=== PATIENT | male | born 1975 | race Caucasian/White ===

== ENCOUNTER 2016-10-05 15:58 | Inpatient (IN) | payer OTHER ==
[2016-10-05 20:01] VITALS: BMI 27.3
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
[2016-10-05] MEDS ORDERED: guaiFENesin/D-METHORPHAN HB 10 ML UNIT-DOSE CUPS PO PRN (21:03)
[2016-10-05] MEDS ORDERED: LOPERAMIDE HCL 2 MG CAPSULE PO PRN (21:03)
[2016-10-05] MEDS ORDERED: ACETAMINOPHEN 325 MG TABLET (FP) PO PRN (21:03)
[2016-10-05] MEDS ORDERED: NICOTINE POLACRILEX 2 MG GUM BUC PRN (21:03)
[2016-10-05] MEDS ORDERED: diazePAM 5 MG TABLET PO ONE (21:03)
[2016-10-05] MEDS ORDERED: MAG HYDROX/AL HYDROX/SIMETH 30 ML UNIT-DOSE CUP PO PRN (21:03)
[2016-10-05] MEDS ORDERED: IBUPROFEN 400 MG TABLET (FP) PO PRN (21:03)
[2016-10-05] MEDS ORDERED: P-EPHED 60MG/TRIPROLIDI 2.5MG TABLET PO PRN (21:03)
[2016-10-05] MEDS ORDERED: MAGNESIUM HYDROX 2400MG/30ML ORAL SUSPENSION 30 ML CUP PO PRN (21:03)
[2016-10-05] MEDS ORDERED: MENTHOL/PHENOL 1 EACH UD MM PRN (21:03)
[2016-10-05] MEDS ORDERED: hydrOXYzine PAMOATE 50 MG CAPSULE (FP) PO PRN (21:03)
[2016-10-05] MEDS ORDERED: MAGNESIUM CITRATE 300 ML BOTTLE PO PRN (21:03)
[2016-10-05] MEDS: diphenhydrAMINE HCL 50 MG CAPSULE PO PRN (22:35)
[2016-10-05] MEDS: THIAMINE HCL 100 MG TABLET (FP) PO SCH (22:37)
[2016-10-05] MEDS: diazePAM 5 MG TABLET PO SCH (22:38)
[2016-10-06] MEDS: diazePAM 5 MG TABLET PO SCH ×3 (05:12→22:20)
[2016-10-06] MEDS ORDERED: METHADONE HCL 10 MG TABLET PO ONE (09:09)
[2016-10-06] MEDS ORDERED: METHADONE 120 MG, METHADONE 30 MG PO ONE (09:39)
[2016-10-06] MEDS ORDERED: METHADONE HCL 40 MG DISPERSABLE TABLET ONE (09:47)
[2016-10-06] MEDS ORDERED: METHADONE HCL 10 MG TABLET ONE (09:48)
[2016-10-06 09:59] LABS: MCH 30.3 pg (25.7-33.7); MCHC 33.7 g/dl (32.0-35.9); MEAN CELL VOLUME 90.1 fl (80-96); MEAN PLT VOLUME 9.2 fl (7.5-11.1); PLATELET COUNT 156 K/MM3 (134-434); RDW 13.8 % (11.9-15.9); WHITE BLOOD COUNT 4.8 K/mm3 (4.0-10.0)
--- NOTE | 2016-10-06 10:07 | PN ---
[facility] CIWA - CIWA Score Nausea/Vomitin-No Nausea/No Vomiting Muscle Tremors: 4-Moderate,w/Arms Extend Anxiety: 4-Mod. Anxious/Guarded Agitation: 4-Moderately Restless Paroxysmal Sweats: 1-Minimal Palms Moist Orientation: 0-Oriented Tacttile Disturbances: 3-Moderate Itch/Numb/Burn Auditory Disturbances: 0-None Visual Disturbances: 0-None Headache: 0-None Present CIWA-Ar Total Score: 16 BHS Progress Note (SOAP) Subjective: ANXIETY,SWEATS,CHILLS, TERMORS. Objective: 10/06/16 10:06 Vital Signs Temperature 97 F L 10/06/16 06:08 Pulse Rate 56 L 10/06/16 06:08 Respiratory Rate 18 10/06/16 06:08 Blood Pressure 123/79 10/06/16 06:08 O2 Sat by Pulse Oximetry (%) LAB RESULTS PENDING Assessment: 10/06/16 10:06 WITHDRAWAL SX Plan: CONTINUE DETOX
[2016-10-06] MEDS: NICOTINE 14 MG/24 HOURS TOPICAL PATCH TD SCH (10:08)
[2016-10-06] MEDS: PRENATAL VITAMINS W/ FOLIC ACID TABLET (FP) PO SCH (10:08)
[2016-10-06] MEDS: diazePAM 5 MG TABLET PO PRN (10:08)
[2016-10-06 10:28] LABS: ALBUMIN 3.9 g/dl (3.4-5.0); ALK PHOS 85 U/L (45-117); ANION GAP 9 (8-16); BILIRUBIN,TOTAL 0.5 mg/dL (0.2-1.0); CALCIUM 8.9 mg/dL (8.5-10.1); CO2 29 mmol/L (21-32); CREATININE 0.9 mg/dL (0.7-1.3); GLUCOSE,RANDOM 86 mg/dL (74-106); SGOT/AST 23 U/L (15-37); SGPT/ALT 25 U/L (12-78); TOT PROT 7.1 g/dl (6.4-8.2)
--- NOTE | 2016-10-06 13:42 | EKG ---
Test Reason : Blood Pressure : / mmHG Vent. Rate : 055 BPM Atrial Rate : 055 BPM P-R Int : 146 ms QRS Dur : 090 ms QT Int : 462 ms P-R-T Axes : 000 057 040 degrees QTc Int : 441 ms SINUS BRADYCARDIA OTHERWISE NORMAL ECG NO PREVIOUS ECGS AVAILABLE Confirmed by NICK SEPULVEDA MD ([id number]) on 10/06/2016 1:42:09 PM Referred By: Confirmed By:NICK SEPULVEDA MD
--- NOTE | 2016-10-06 15:56 | CONSULT ---
[facility] Psychiatric Consult - Data Date of interview: 10/06/16 Admission source: [facility] Identifying data: First admision to [facility] for this 41 y/o male seeking detox treatment for heroin,xanax,marijuana and cocaine dependence.Patient is single,a father of one,domiciled,unemployed and supported on food stamps. Substance Abuse History: - Smoking Cessation. Smoking history: Current every day smoker. Have you smoked in the past 12 months: Yes. Aproximately how many cigarettes per day: 10. Hx Chewing Tobacco Use: No. Initiated information on smoking cessation: Yes. 'Breaking Loose' booklet given: 10/05/16. - Substance & Tx. History. Hx Alcohol Use: No. Hx Substance Use: Yes. Substance Use Type : Heroin, Tranquilizers. Hx Substance Use Treatment: Yes (DETOX AND REHAB ). - Substances Abused. Alprazolam (Xanax). Route: Oral. Frequency: Daily. Amount used: 12mg. Age of first use: 18. Date of Last Use: 10/05/16. Confirmed by the patient. Medical History: Hepatitis C and a history of nephrolithiasis. Psychiatric History: Patient admits to a history of " a few " psychiatric hospitalizations (in [facility] and in [place]).Diagnosed with Bipolar Disorder and prescribed effexor XR 75 mg /day + gabapentin 400 mg po tid + buspar 10 mg po bid.Mr Pritchard reports follow up at the [facility] in [facility].Patient is also on methadone maintenance (150 mg/day) at the [facility] program ([place]).No history of suicide attempts reported in this interview. Physical/Sexual Abuse/Trauma History: Patient denies. Additional Comment: Urine Drug Screen Results: THC-Marijuana, JAKOB-Cocaine, OPI- Opiates, PCP-Phencyclidine, BZO-Benzodiazepines, MTD-Methadone.Noted. Mental Status Exam - Mental Status Exam Alert and Oriented to: Time, Place, Person Cognitive Function: Good Patient Appearance: Well Groomed Mood: Nervous, Withdrawn, Anxious, Apprehensive Affect: Mood Congruent Patient Behavior: Fatigued, Cooperative Speech Pattern: Clear Voice Loudness: Normal Thought Process: Goal Oriented Hallucinations: Denies Suicidal Ideation: Denies Homicidal Ideation: Denies Insight/Judgement: Poor Sleep: Fair Appetite: Good Muscle strength/Tone: Normal Gait/Station: Normal Psychiatric Findings - Problem List ([place] 1, 2,3) (1) Opioid dependence on agonist therapy Current Visit: Yes Status: Acute (2) Sedative, hypnotic or anxiolytic dependence with withdrawal, uncomplicated Current Visit: Yes Status: Acute (3) Nicotine dependence Current Visit: Yes Status: Acute (4) Cocaine dependence Current Visit: Yes Status: Acute (5) Cannabis dependence Current Visit: Yes Status: Acute (6) PCP (phencyclidine) abuse Current Visit: Yes Status: Acute (7) Substance induced mood disorder Current Visit: Yes Status: Acute (8) Bipolar disorder Current Visit: Yes Status: Chronic - Initial Treatment Plan Initial Treatment Plan: Psychoeducation provided in this session.Detoxification is in progress.Medications : buspar 10 mg po bid + effexor XL 75 mg po daily + gabapentin 200 mg po tid.Side efffects/benefits discussed with patient.He agrees with this careplan.Observation.
[2016-10-06 20:26] LABS: URINE APPEARANCE SLCLOUDY; URINE BILIRUBIN NEGATIVE (NEGATIVE); URINE BLOOD NEGATIVE (NEGATIVE); URINE COLOR YELLOW; URINE GLUCOSE (UA) NEGATIVE (NEGATIVE); URINE KETONE NEGATIVE (NEGATIVE); URINE NITRITE NEGATIVE (NEGATIVE); URINE PROTEIN NEGATIVE (NEGATIVE); URINE UROBILINOGEN NEGATIVE E.U./dl (0.2-1.0)
[2016-10-06 20:38] LABS: URINE LEUK ESTERASE TRACE (NEGATIVE)
[2016-10-06 20:41] LABS: URINE BACTERIA RARE /hpf (NONE SEEN); URINE MUCUS MODERATE; URINE RBC <1 /hpf (0-3); URINE WBC 1 /hpf (3-5)
[2016-10-06] MEDS: THIAMINE HCL 100 MG TABLET (FP) PO SCH (22:20)
[2016-10-06] MEDS: GABAPENTIN 100 MG CAPSULE (FP) PO SCH (22:20)
[2016-10-06] MEDS: busPIRone HCL 10 MG TABLET (FP) PO SCH (22:20)
[2016-10-07] MEDS ORDERED: METHADONE HCL 10 MG TABLET ONE (05:25)
[2016-10-07] MEDS ORDERED: METHADONE HCL 40 MG DISPERSABLE TABLET ONE (05:26)
[2016-10-07] MEDS: GABAPENTIN 100 MG CAPSULE (FP) PO SCH ×3 (05:45→22:17)
[2016-10-07] MEDS: diazePAM 5 MG TABLET PO PRN ×2 (05:45→13:41)
[2016-10-07] MEDS: METHADONE 120 MG, METHADONE 30 MG PO SCH (05:45)
[2016-10-07] MEDS ORDERED: METHADONE HCL 10 MG TABLET PO SCH (06:00)
[2016-10-07] MEDS: VENLAFAXINE HCL 75 MG E.R. CAPSULES (FP) PO SCH (10:29)
[2016-10-07] MEDS: PRENATAL VITAMINS W/ FOLIC ACID TABLET (FP) PO SCH (10:29)
[2016-10-07] MEDS: busPIRone HCL 10 MG TABLET (FP) PO SCH ×2 (10:29→22:17)
[2016-10-07] MEDS: NICOTINE 14 MG/24 HOURS TOPICAL PATCH TD SCH (10:29)
[2016-10-07] MEDS: diazePAM 5 MG TABLET PO SCH ×2 (10:29→22:17)
--- NOTE | 2016-10-07 11:26 | PN ---
[facility] CIWA - CIWA Score Nausea/Vomitin-No Nausea/No Vomiting Muscle Tremors: 4-Moderate,w/Arms Extend Anxiety: 4-Mod. Anxious/Guarded Agitation: 4-Moderately Restless Paroxysmal Sweats: 1-Minimal Palms Moist Orientation: 0-Oriented Tacttile Disturbances: 3-Moderate Itch/Numb/Burn Auditory Disturbances: 0-None Visual Disturbances: 0-None Headache: 0-None Present CIWA-Ar Total Score: 16 S Progress Note (SOAP) Subjective: SWEATS/CHILLS, ANXIETY,TREMORS,FATIGUE. Objective: 10/07/16 11:27 Vital Signs Temperature 98.3 F 10/07/16 09:11 Pulse Rate 65 10/07/16 09:11 Respiratory Rate 18 10/07/16 09:11 Blood Pressure 127/85 10/07/16 09:11 O2 Sat by Pulse Oximetry (%) Laboratory Last Values WBC 4.8 K/mm3 (4.0-10.0) 10/06/16 07:00 RBC 4.77 M/mm3 (4.00-5.60) 10/06/16 07:00 Hgb 14.5 GM/dL (11.7-16.9) 10/06/16 07:00 Hct 43.0 % (35.4-49) 10/06/16 07:00 MCV 90.1 fl (80-96) 10/06/16 07:00 MCHC 33.7 g/dl (32.0-35.9) 10/06/16 07:00 RDW 13.8 % (11.9-15.9) 10/06/16 07:00 Plt Count 156 K/MM3 (134-434) 10/06/16 07:00 MPV 9.2 fl (7.5-11.1) 10/06/16 07:00 Sodium 139 mmol/L (136-145) 10/06/16 07:00 Potassium 4.4 mmol/L (3.5-5.1) 10/06/16 07:00 Chloride 101 mmol/L (98-107) 10/06/16 07:00 Carbon Dioxide 29 mmol/L (21-32) 10/06/16 07:00 Anion Gap 9 (8-16) 10/06/16 07:00 BUN 15 mg/dL (7-18) 10/06/16 07:00 Creatinine 0.9 mg/dL (0.7-1.3) 10/06/16 07:00 Creat Clearance w eGFR > 60 (>60) 10/06/16 07:00 Random Glucose 86 mg/dL (74-106) 10/06/16 07:00 Calcium 8.9 mg/dL (8.5-10.1) 10/06/16 07:00 Total Bilirubin 0.5 mg/dL (0.2-1.0) 10/06/16 07:00 AST 23 U/L (15-37) 10/06/16 07:00 ALT 25 U/L (12-78) 10/06/16 07:00 Alkaline Phosphatase 85 U/L (45-117) 10/06/16 07:00 Total Protein 7.1 g/dl (6.4-8.2) 10/06/16 07:00 Albumin 3.9 g/dl (3.4-5.0) 10/06/16 07:00 Urine Color Yellow 10/06/16 20:19 Urine Appearance Slcloudy 10/06/16 20:19 Urine pH 6.0 (5.0-8.0) 10/06/16 20:19 Ur Specific [place] 1.012 (1.001-1.035) 10/06/16 20:19 Urine Protein Negative (NEGATIVE) 10/06/16 20:19 Urine Glucose (UA) Negative (NEGATIVE) 10/06/16 20:19 Urine Ketones Negative (NEGATIVE) 10/06/16 20:19 Urine Blood Negative (NEGATIVE) 10/06/16 20:19 Urine Nitrite Negative (NEGATIVE) 10/06/16 20:19 Urine Bilirubin Negative (NEGATIVE) 10/06/16 20:19 Urine Urobilinogen Negative E.U./dl (0.2-1.0) 10/06/16 20:19 Ur Leukocyte Esterase Trace (NEGATIVE) H 10/06/16 20:19 Urine RBC <1 /hpf (0-3) 10/06/16 20:19 Urine WBC 1 /hpf (3-5) 10/06/16 20:19 Ur Epithelial Cells Rare /hpf (FEW) 10/06/16 20:19 Urine Bacteria Rare /hpf (NONE SEEN) 10/06/16 20:19 Urine Mucus Moderate 10/06/16 20:19 RPR Titer Nonreactive (NONREACTIVE) 10/06/16 07:00 Assessment: 10/07/16 11:27 WITHDRAWAL SX Plan: CONTINUE DETOX INCREASE PO FLUIDS
[2016-10-07] MEDS: THIAMINE HCL 100 MG TABLET (FP) PO SCH (22:17)
[2016-10-07] MEDS: diphenhydrAMINE HCL 50 MG CAPSULE PO PRN (22:18)
[2016-10-07 22:49] LABS: URINE APPEARANCE CLEAR; URINE BILIRUBIN NEGATIVE (NEGATIVE); URINE BLOOD NEGATIVE (NEGATIVE); URINE COLOR LTYELLOW; URINE GLUCOSE (UA) NEGATIVE (NEGATIVE); URINE KETONE NEGATIVE (NEGATIVE); URINE NITRITE NEGATIVE (NEGATIVE); URINE PROTEIN NEGATIVE (NEGATIVE); URINE UROBILINOGEN NEGATIVE E.U./dl (0.2-1.0)
[2016-10-07 22:50] LABS: URINE LEUK ESTERASE TRACE (NEGATIVE)
[2016-10-07 22:51] LABS: URINE HYALINE CAST 8 /lpf; URINE MUCUS FEW; URINE RBC <1 /hpf (0-3); URINE WBC 1 /hpf (3-5)
[2016-10-08] MEDS ORDERED: METHADONE HCL 10 MG TABLET ONE (03:34)
[2016-10-08] MEDS ORDERED: METHADONE HCL 40 MG DISPERSABLE TABLET ONE (03:34)
[2016-10-08] MEDS: METHADONE 120 MG, METHADONE 30 MG PO SCH (05:43)
[2016-10-08] MEDS: GABAPENTIN 100 MG CAPSULE (FP) PO SCH ×3 (05:43→22:24)
[2016-10-08] MEDS: VENLAFAXINE HCL 75 MG E.R. CAPSULES (FP) PO SCH (10:12)
[2016-10-08] MEDS: PRENATAL VITAMINS W/ FOLIC ACID TABLET (FP) PO SCH (10:12)
[2016-10-08] MEDS: busPIRone HCL 10 MG TABLET (FP) PO SCH ×2 (10:12→22:24)
[2016-10-08] MEDS: NICOTINE 14 MG/24 HOURS TOPICAL PATCH TD SCH (10:13)
[2016-10-08] MEDS: diazePAM 5 MG TABLET PO SCH ×2 (10:13→22:24)
--- NOTE | 2016-10-08 10:48 | PN ---
BHS Progress Note (SOAP) Subjective: Sweating,interrupted sleep,restless Objective: 10/08/16 10:46 Vital Signs 10/08/16 10/08/16 10/08/16 03:56 06:37 09:23 Temperature 97.0 F L 98.2 F Pulse Rate 67 67 Respiratory 18 18 18 Rate Blood Pressure 129/87 119/91 Laboratory Last Values WBC 4.8 K/mm3 (4.0-10.0) 10/06/16 07:00 RBC 4.77 M/mm3 (4.00-5.60) 10/06/16 07:00 Hgb 14.5 GM/dL (11.7-16.9) 10/06/16 07:00 Hct 43.0 % (35.4-49) 10/06/16 07:00 MCV 90.1 fl (80-96) 10/06/16 07:00 MCHC 33.7 g/dl (32.0-35.9) 10/06/16 07:00 RDW 13.8 % (11.9-15.9) 10/06/16 07:00 Plt Count 156 K/MM3 (134-434) 10/06/16 07:00 MPV 9.2 fl (7.5-11.1) 10/06/16 07:00 Sodium 139 mmol/L (136-145) 10/06/16 07:00 Potassium 4.4 mmol/L (3.5-5.1) 10/06/16 07:00 Chloride 101 mmol/L (98-107) 10/06/16 07:00 Carbon Dioxide 29 mmol/L (21-32) 10/06/16 07:00 Anion Gap 9 (8-16) 10/06/16 07:00 BUN 15 mg/dL (7-18) 10/06/16 07:00 Creatinine 0.9 mg/dL (0.7-1.3) 10/06/16 07:00 Creat Clearance w eGFR > 60 (>60) 10/06/16 07:00 Random Glucose 86 mg/dL (74-106) 10/06/16 07:00 Calcium 8.9 mg/dL (8.5-10.1) 10/06/16 07:00 Total Bilirubin 0.5 mg/dL (0.2-1.0) 10/06/16 07:00 AST 23 U/L (15-37) 10/06/16 07:00 ALT 25 U/L (12-78) 10/06/16 07:00 Alkaline Phosphatase 85 U/L (45-117) 10/06/16 07:00 Total Protein 7.1 g/dl (6.4-8.2) 10/06/16 07:00 Albumin 3.9 g/dl (3.4-5.0) 10/06/16 07:00 Urine Color Ltyellow 10/07/16 22:40 Urine Appearance Clear 10/07/16 22:40 Urine pH 6.0 (5.0-8.0) 10/07/16 22:40 Ur Specific [place] 1.010 (1.001-1.035) 10/07/16 22:40 Urine Protein Negative (NEGATIVE) 10/07/16 22:40 Urine Glucose (UA) Negative (NEGATIVE) 10/07/16 22:40 Urine Ketones Negative (NEGATIVE) 10/07/16 22:40 Urine Blood Negative (NEGATIVE) 10/07/16 22:40 Urine Nitrite Negative (NEGATIVE) 10/07/16 22:40 Urine Bilirubin Negative (NEGATIVE) 10/07/16 22:40 Urine Urobilinogen Negative E.U./dl (0.2-1.0) 10/07/16 22:40 Ur Leukocyte Esterase Trace (NEGATIVE) H 10/07/16 22:40 Urine RBC <1 /hpf (0-3) 10/07/16 22:40 Urine WBC 1 /hpf (3-5) 10/07/16 22:40 Ur Epithelial Cells Rare /hpf (FEW) 10/07/16 22:40 Urine Bacteria Rare /hpf (NONE SEEN) 10/06/16 20:19 Hyaline Casts 8 /lpf 10/07/16 22:40 Urine Mucus Few 10/07/16 22:40 RPR Titer Nonreactive (NONREACTIVE) 10/06/16 07:00 labs noted Assessment: 10/08/16 10:47 Withdrawal sx Plan: Continue detox
[2016-10-08] MEDS: diazePAM 5 MG TABLET PO PRN (14:37)
[2016-10-08] MEDS: diphenhydrAMINE HCL 50 MG CAPSULE PO PRN (22:24)
[2016-10-08] MEDS: THIAMINE HCL 100 MG TABLET (FP) PO SCH (22:24)
[2016-10-09] MEDS ORDERED: METHADONE HCL 10 MG TABLET ONE (02:50)
[2016-10-09] MEDS ORDERED: METHADONE HCL 40 MG DISPERSABLE TABLET ONE (02:50)
[2016-10-09] MEDS: GABAPENTIN 100 MG CAPSULE (FP) PO SCH (05:16)
[2016-10-09] MEDS: METHADONE 120 MG, METHADONE 30 MG PO SCH (05:16)
[2016-10-09 06:35] VITALS: BP 128/87; PULSE 77; TEMP 96.9
[2016-10-09] MEDS: VENLAFAXINE HCL 75 MG E.R. CAPSULES (FP) PO SCH (09:09)
[2016-10-09] MEDS: NICOTINE 14 MG/24 HOURS TOPICAL PATCH TD SCH (09:09)
[2016-10-09] MEDS: PRENATAL VITAMINS W/ FOLIC ACID TABLET (FP) PO SCH (09:09)
[2016-10-09] MEDS: busPIRone HCL 10 MG TABLET (FP) PO SCH (09:09)
[2016-10-09] MEDS ORDERED: diazePAM 5 MG TABLET PO SCH (10:00)
--- NOTE | 2016-10-09 13:21 | DS ---
[facility] Detox Discharge Summary Admission Date: 10/05/16 Discharge Date: 10/09/16 - History Present History: Opioid Dependence, Sedative Dependence Additional Comments: ADVISED PATIENT TO FOLLOW-UP WITH [facility] / REHAB MEDICAL PROVIDER AFTER DISCHARGE FROM DETOX FOR GENERAL MEDICAL ASSESSMENT AND FOR ANY ABNORMAL ADMISSION LAB VALUES. Pertinent Past History: Bi-Polar disorder, Hep C, Depression. - Physical Exam Results Vital Signs: Vital Signs Temperature 96.9 F L 10/09/16 06:35 Pulse Rate 77 10/09/16 06:35 Respiratory Rate 18 10/09/16 06:35 Blood Pressure 128/87 10/09/16 06:35 O2 Sat by Pulse Oximetry (%) Pertinent Admission Physical Exam Findings: WITHDRAWAL SYMPTOMS. Laboratory Last Values WBC 4.8 K/mm3 (4.0-10.0) 10/06/16 07:00 RBC 4.77 M/mm3 (4.00-5.60) 10/06/16 07:00 Hgb 14.5 GM/dL (11.7-16.9) 10/06/16 07:00 Hct 43.0 % (35.4-49) 10/06/16 07:00 MCV 90.1 fl (80-96) 10/06/16 07:00 MCHC 33.7 g/dl (32.0-35.9) 10/06/16 07:00 RDW 13.8 % (11.9-15.9) 10/06/16 07:00 Plt Count 156 K/MM3 (134-434) 10/06/16 07:00 MPV 9.2 fl (7.5-11.1) 10/06/16 07:00 Sodium 139 mmol/L (136-145) 10/06/16 07:00 Potassium 4.4 mmol/L (3.5-5.1) 10/06/16 07:00 Chloride 101 mmol/L (98-107) 10/06/16 07:00 Carbon Dioxide 29 mmol/L (21-32) 10/06/16 07:00 Anion Gap 9 (8-16) 10/06/16 07:00 BUN 15 mg/dL (7-18) 10/06/16 07:00 Creatinine 0.9 mg/dL (0.7-1.3) 10/06/16 07:00 Creat Clearance w eGFR > 60 (>60) 10/06/16 07:00 Random Glucose 86 mg/dL (74-106) 10/06/16 07:00 Calcium 8.9 mg/dL (8.5-10.1) 10/06/16 07:00 Total Bilirubin 0.5 mg/dL (0.2-1.0) 10/06/16 07:00 AST 23 U/L (15-37) 10/06/16 07:00 ALT 25 U/L (12-78) 10/06/16 07:00 Alkaline Phosphatase 85 U/L (45-117) 10/06/16 07:00 Total Protein 7.1 g/dl (6.4-8.2) 10/06/16 07:00 Albumin 3.9 g/dl (3.4-5.0) 10/06/16 07:00 Urine Color Ltyellow 10/07/16 22:40 Urine Appearance Clear 10/07/16 22:40 Urine pH 6.0 (5.0-8.0) 10/07/16 22:40 Ur Specific [place] 1.010 (1.001-1.035) 10/07/16 22:40 Urine Protein Negative (NEGATIVE) 10/07/16 22:40 Urine Glucose (UA) Negative (NEGATIVE) 10/07/16 22:40 Urine Ketones Negative (NEGATIVE) 10/07/16 22:40 Urine Blood Negative (NEGATIVE) 10/07/16 22:40 Urine Nitrite Negative (NEGATIVE) 10/07/16 22:40 Urine Bilirubin Negative (NEGATIVE) 10/07/16 22:40 Urine Urobilinogen Negative E.U./dl (0.2-1.0) 10/07/16 22:40 Ur Leukocyte Esterase Trace (NEGATIVE) H 10/07/16 22:40 Urine RBC <1 /hpf (0-3) 10/07/16 22:40 Urine WBC 1 /hpf (3-5) 10/07/16 22:40 Ur Epithelial Cells Rare /hpf (FEW) 10/07/16 22:40 Urine Bacteria Rare /hpf (NONE SEEN) 10/06/16 20:19 Hyaline Casts 8 /lpf 10/07/16 22:40 Urine Mucus Few 10/07/16 22:40 RPR Titer Nonreactive (NONREACTIVE) 10/06/16 07:00 LABS NOTED. - Treatment Hospital Course: Detox Protocol Followed, Detoxed Safely, Responded well, Discharged Condition Good Patient has Accepted a Rehab Referral to: NO - PT. ELECTING TO GO HOME AT THIS TIME. 12-STEP PROGRAM RECOMMENDED. - Medication Discharge Medications: Ambulatory Orders Buspirone HCl [Buspar -] 10 mg PO BID 10/05/16 Gabapentin [Neurontin -] 400 mg PO TID 10/05/16 Venlafaxine HCl ER [Effexor Xr -] 75 mg PO BID 10/05/16 - Diagnosis (1) Nicotine dependence Status: Chronic Qualifiers: Nicotine product type: cigarettes Substance use status: uncomplicated Qualified Code(s): F17.210 - Nicotine dependence, cigarettes, uncomplicated (2) Opioid dependence on agonist therapy Status: Acute (3) Sedative, hypnotic or anxiolytic dependence with withdrawal, uncomplicated Status: Acute (4) Substance induced mood disorder Status: Acute (5) Bipolar disorder Status: Chronic Qualifiers: Active/Remission status: remission status unspecified Qualified Code (s): F31.9 - Bipolar disorder, unspecified (6) History of positive PPD Status: Chronic - AMA Did Patient Leave Against Medical Advice: No
== END 2016-10-09 09:10 | disposition home or self-care (01) | DRG 773 ==
LOC: YASAS 15:58 → Y3N 20:12
PROVIDERS: ADMIT Internal Medicine; ATTEND Internal Medicine
PROC: HZ2ZZZZ Detoxification Services for Substance Abuse Treatment (ICD-10-PCS; principal; 2016-10-05)
DX: F11.23 Opioid dependence with withdrawal (principal); F13.230 Sedative, hypnotic or anxiolytic dependence with withdrawal, uncomplicated; F14.20 Cocaine dependence, uncomplicated; F12.20 Cannabis dependence, uncomplicated; F16.10 Hallucinogen abuse, uncomplicated; F17.210 Nicotine dependence, cigarettes, uncomplicated; F19.24 Other psychoactive substance dependence with psychoactive substance-induced mood disorder; F31.9 Bipolar disorder, unspecified; B18.2 Chronic viral hepatitis C; R76.11 Nonspecific reaction to tuberculin skin test without active tuberculosis
CPT/HCPCS: 36415; 71020-TC; 80053; 81003; 81015; 85027; 86593; 93005; 93010

== ENCOUNTER 2016-12-04 15:46 | Inpatient (IN) | payer OTHER ==
[2016-12-04 21:34] VITALS: BMI 26.1
--- NOTE | 2016-12-04 22:08 | HP ---
CIWA Score - CIWA Score Nausea/Vomitin-Mild Nausea/No Vomiting Muscle Tremors: 4-Moderate,w/Arms Extend Anxiety: 4-Mod. Anxious/Guarded Agitation: 4-Moderately Restless Paroxysmal Sweats: 1-Minimal Palms Moist Orientation: 0-Oriented Tacttile Disturbances: 0-None Auditory Disturbances: 0-None Visual Disturbances: 0-None Headache: 0-None Present CIWA-Ar Total Score: 14 Admission ROS S - HPI Chief Complaint: WITHDRAWAL SX Allergies/Adverse Reactions: Allergies Allergy/AdvReac Type Severity Reaction Status Date / Time No Known Allergies Allergy Verified 12/04/16 21:14 History of Present Illness: 41 YEARS OLD MALE WITH LONG HISTORY OF XANAX NICOTINE DEPENDENCE, HAS HEPATITIS C, POSITIVE PPD, ON METHADONE 150 MG AND DEPRESSION IS ADMITTED TO DETOX Exam Limitations: No Limitations - Ebola screening Have you traveled outside of the country in the last 21 days: No Have you had contact with anyone from an Ebola affected area: No Have you been sick,other than usual withdrawal symptoms: No Do you have a fever: No - Review of Systems Constitutional: Chills, Changes in sleep, Weight Stable EENT: reports: No Symptoms Reported Respiratory: reports: No Symptoms reported Cardiac: reports: No Symptoms Reported GI: reports: Nausea, Poor Fluid Intake, Abdominal cramping : reports: No Symptoms Reported Musculoskeletal: reports: Back Pain, Muscle Pain Integumentary: reports: Change in Color (BOTH ARMS OLD IV OPIOID) Neuro: reports: Seizure (SOMA 2008), Tremors Endocrine: reports: No Symptoms Reported Hematology: reports: No Symptoms Reported Psychiatric: reports: Judgement Intact, Orientated x3, Depressed Other Systems: Reviewed and Negative Patient History - Patient Medical History Hx Anemia: No Hx Asthma: No Hx Chronic Obstructive Pulmonary Disease (COPD): No Hx Cancer: No Hx Cardiac Disorders: No Hx Congestive Heart Failure: No Hx Hypertension: No Hx Hypercholesterolemia: No Hx Pacemaker: No HX Cerebrovascular Accident: No Hx Seizures: No Hx Dementia: No Hx Diabetes: No Hx Gastrointestinal Disorders: No Hx Liver Disease: No Hx Genitourinary Disorders: No Hx Sexually Transmitted Disorders: No Hx Renal Disease (ESRD): No Hx Thyroid Disease: No Hx Human Immunodeficiency Virus (HIV): No Hx Hepatitis C: Yes (COMPLETED [place]) Hx Depression: No Hx Suicide Attempt: No Hx Bipolar Disorder: Yes Hx Schizophrenia: No - Patient Surgical History Past Surgical History: Yes Hx Neurologic Surgery: No Hx Cataract Extraction: No Hx Cardiac Surgery: No Hx Lung Surgery: No Hx Breast Surgery: No Hx Breast Biopsy: No Hx Abdominal Surgery: No Hx Appendectomy: No Hx Cholecystectomy: No Hx Genitourinary Surgery: No Hx Orthopedic Surgery: No Other Surgical History: KIDNEY STONE REMOVAL Anesthesia Reaction: No - PPD History Previous Implant?: Yes Documented Results: Positive w/proof Implanted On Prior R Admission?: No Results: NEEDS CXR PPD to be Administered?: No - Smoking Cessation Smoking history: Current every day smoker Have you smoked in the past 12 months: Yes Aproximately how many cigarettes per day: 10 Cigars Per Day: 0 Hx Chewing Tobacco Use: No Initiated information on smoking cessation: Yes 'Breaking Loose' booklet given: 12/04/16 - Substance & Tx. History Hx Alcohol Use: No Hx Substance Use: Yes Substance Use Type: Marijuana, Tranquilizers Hx Substance Use Treatment: Yes - Substances Abused Alprazolam (Xanax) Route: Oral Frequency: Daily Amount used: 8mg Age of first use: 16 Date of Last Use: 12/04/16 Family Disease History - Family Disease History Family Disease History: Diabetes: Grandparent, Heart Disease: Grandparent, Respiratory: Grandparent, Other: Brother (OPIATE DEPENDENCE ) Admission Physical Exam S - Vital Signs Vital Signs: Vital Signs - 24 hr 12/04/16 12/04/16 18:40 21:33 Temperature 96.7 F L 96.7 F L Pulse Rate 91 H 91 H Respiratory 18 18 Rate Blood Pressure 126/82 126/82 - Physical General Appearance: Yes: Nourished, Appropriately Dressed, Mild Distress, Tremorous, Irritable, Sweating, Anxious HEENTM: Yes: Hearing grossly Normal, Normal ENT Inspection, Normocephalic, Normal Voice Respiratory: Yes: Chest Non-Tender, Lungs Clear, Normal Breath Sounds, No Respiratory Distress, No Accessory Muscle Use Neck: Yes: Supple, Trachea in good position Breast: Yes: Breasts Symetrical Cardiology: Yes: Regular Rhythm, Regular Rate, S1, S2 Abdominal: Yes: Non Tender, Soft Genitourinary: Yes: Within Normal Limits Back: Yes: Normal Inspection Musculoskeletal: Yes: full range of Motion, Gait Steady Extremities: Yes: Normal Range of Motion, Non-Tender, Tremors, Other (OLD IV OPIOID ARMS) Neurological: Yes: Fully Oriented, Alert, Motor Strength 5/5, Normal Response, Depressed Affect Integumentary: Yes: Warm Lymphatic: Yes: Within Normal Limits - Diagnostic (1) Sedative, hypnotic or anxiolytic dependence with withdrawal, uncomplicated Current Visit: Yes Status: Acute (2) History of positive PPD Current Visit: Yes Status: Resolved (3) Nicotine dependence Current Visit: Yes Status: Acute Qualifiers: Nicotine product type: cigarettes Substance use status: in withdrawal Qualified Code(s): F17.213 - Nicotine dependence, cigarettes, with withdrawal (4) Bipolar II disorder Current Visit: Yes Status: Resolved (5) Hepatitis C antibody test positive Current Visit: Yes Status: Resolved (6) Methadone maintenance therapy patient Current Visit: Yes Status: Chronic Comment: 150 MG VERIFICATION PENDING Cleared for Admission S - Detox or Rehab [facility] Level of Care: Medically Managed Detox Regimen/Protocol: Valium S Breath Alcohol Content Breath Alcohol Content: 0 Urine Drug Screen - Results Drug Screen Negative: No Urine Drug Screen Results: THC-Marijuana, BZO-Benzodiazepines, MTD-Methadone
[2016-12-04] MEDS ORDERED: IBUPROFEN 400 MG TABLET (FP) PO PRN (22:14)
[2016-12-04] MEDS ORDERED: MENTHOL/PHENOL 1 EACH UD MM PRN (22:14)
[2016-12-04] MEDS ORDERED: MAGNESIUM HYDROX 2400MG/30ML ORAL SUSPENSION 30 ML CUP PO PRN (22:14)
[2016-12-04] MEDS ORDERED: ACETAMINOPHEN 325 MG TABLET (FP) PO PRN (22:14)
[2016-12-04] MEDS ORDERED: NICOTINE POLACRILEX 2 MG GUM BUC PRN (22:14)
[2016-12-04] MEDS ORDERED: guaiFENesin/D-METHORPHAN HB 10 ML UNIT-DOSE CUPS PO PRN (22:14)
[2016-12-04] MEDS ORDERED: P-EPHED 60MG/TRIPROLIDI 2.5MG TABLET PO PRN (22:14)
[2016-12-04] MEDS ORDERED: MAG HYDROX/AL HYDROX/SIMETH 30 ML UNIT-DOSE CUP PO PRN (22:14)
[2016-12-04] MEDS ORDERED: diazePAM 5 MG TABLET PO ONE (22:14)
[2016-12-04] MEDS ORDERED: LOPERAMIDE HCL 2 MG CAPSULE PO PRN (22:14)
[2016-12-04] MEDS ORDERED: MAGNESIUM CITRATE 300 ML BOTTLE PO PRN (22:14)
[2016-12-04] MEDS: diphenhydrAMINE HCL 50 MG CAPSULE PO PRN (23:13)
[2016-12-04] MEDS: diazePAM 5 MG TABLET PO SCH (23:15)
[2016-12-05 01:51] LABS: URINE APPEARANCE SLCLOUDY; URINE BILIRUBIN NEGATIVE (NEGATIVE); URINE BLOOD NEGATIVE (NEGATIVE); URINE COLOR YELLOW; URINE GLUCOSE (UA) NEGATIVE (NEGATIVE); URINE KETONE NEGATIVE (NEGATIVE); URINE NITRITE NEGATIVE (NEGATIVE); URINE PROTEIN NEGATIVE (NEGATIVE); URINE UROBILINOGEN NEGATIVE E.U./dl (0.2-1.0)
[2016-12-05 03:04] LABS: URINE LEUK ESTERASE TRACE (NEGATIVE)
[2016-12-05 03:08] LABS: URINE HYALINE CAST 1 /lpf; URINE MUCUS MANY; URINE RBC 17 /hpf (0-3); URINE WBC 8 /hpf (3-5)
[2016-12-05] MEDS: diazePAM 5 MG TABLET PO SCH ×3 (05:35→22:50)
[2016-12-05] MEDS ORDERED: METHADONE HCL 10 MG TABLET PO SCH (09:30)
[2016-12-05] MEDS: NICOTINE 14 MG/24 HOURS TOPICAL PATCH TD SCH ×2 (10:34→13:09)
[2016-12-05] MEDS: PRENATAL VITAMINS W/ FOLIC ACID TABLET (FP) PO SCH (10:34)
[2016-12-05] MEDS ORDERED: METHADONE HCL 40 MG DISPERSABLE TABLET ONE (10:35)
[2016-12-05] MEDS: METHADONE 120 MG, METHADONE 30 MG PO SCH (10:35)
[2016-12-05] MEDS ORDERED: METHADONE HCL 10 MG TABLET ONE (10:35)
[2016-12-05] MEDS: diazePAM 5 MG TABLET PO PRN (10:37)
[2016-12-05 10:43] LABS: MCH 30.2 pg (25.7-33.7); MCHC 33.8 g/dl (32.0-35.9); MEAN CELL VOLUME 89.5 fl (80-96); MEAN PLT VOLUME 9.8 fl (7.5-11.1); PLATELET COUNT 124 K/MM3 (134-434); WHITE BLOOD COUNT 8.1 K/mm3 (4.0-10.0)
[2016-12-05 11:34] LABS: ALBUMIN 3.9 g/dl (3.4-5.0); ALK PHOS 91 U/L (45-117); ANION GAP 11 (8-16); BILIRUBIN,TOTAL 0.4 mg/dL (0.2-1.0); CO2 27 mmol/L (21-32); COCKROFT - GAULT 106.19; GLUCOSE,RANDOM 75 mg/dL (74-106); SGOT/AST 19 U/L (15-37); SGPT/ALT 22 U/L (12-78)
--- NOTE | 2016-12-05 13:19 | CONSULT ---
[facility] Psychiatric Consult - Data Date of interview: 12/05/16 Admission source: [facility] Identifying data: Readmission to [facility] for this 41 y/o male seeking detox treatment for heroin,xanax and marijuana dependence.Patient is single,a father of one,domiciled,unemployed and supported on Public Assistance. Substance Abuse History: - Smoking Cessation. Smoking history: Current every day smoker. Have you smoked in the past 12 months: Yes. Aproximately how many cigarettes per day: 10. Cigars Per Day: 0. Hx Chewing Tobacco Use: No. Initiated information on smoking cessation: Yes. 'Breaking Loose' booklet given : 12/04/16. - Substance & Tx. History. Hx Alcohol Use: No. Hx Substance Use: Yes. Substance Use Type: Marijuana, Tranquilizers. Hx Substance Use Treatment : Yes. - Substances Abused. Alprazolam (Xanax). Route: Oral. Frequency: Daily. Amount used: 8mg. Age of first use: 16. Date of Last Use: 12/04/16. Confirmed by patient. Medical History: Hepatitis C,positive PPD (treated) and a history of nephrolithiasis. Psychiatric History: Patient admits to a history of 4-5 psychiatric hospitalizations (in [facility] and [place]).Diagnosed with Bipolar Disorder and prescribed effexor XR 75 mg /day + gabapentin 300 mg po tid.Mr Pritchard reports follow up at the [facility] outpatient drug program in [facility].Maintained on methadone 150 mg/day at the [facility] MMTP program ( [place]).No history of suicide attempts. Physical/Sexual Abuse/Trauma History: Patient denies. Additional Comment: Urine Drug Screen Results: THC-Marijuana, BZO- Benzodiazepines, MTD-Methadone.Noted. Mental Status Exam - Mental Status Exam Alert and Oriented to: Time, Place, Person Cognitive Function: Good Patient Appearance: Unkempt, Disheveled Mood: Nervous, Withdrawn Affect: Mood Congruent, Constricted Patient Behavior: Fatigued, Cooperative Speech Pattern: Clear Voice Loudness: Normal Thought Process: Goal Oriented Thought Disorder: Not Present Hallucinations: Denies Suicidal Ideation: Denies Homicidal Ideation: Denies Insight/Judgement: Poor Sleep: Well Appetite: Good Muscle strength/Tone: Normal Gait/Station: Normal Psychiatric Findings - Problem List ([place] 1, 2,3) (1) Opioid dependence on agonist therapy Current Visit: Yes Status: Acute (2) Sedative, hypnotic or anxiolytic dependence with withdrawal, uncomplicated Current Visit: Yes Status: Acute (3) Cannabis dependence Current Visit: Yes Status: Acute (4) Nicotine dependence Current Visit: Yes Status: Acute Qualifiers: Nicotine product type: cigarettes Substance use status: in withdrawal Qualified Code(s): F17.213 - Nicotine dependence, cigarettes, with withdrawal (5) Substance induced mood disorder Current Visit: Yes Status: Acute (6) Bipolar II disorder Current Visit: Yes Status: Chronic (7) Hepatitis C antibody test positive Current Visit: Yes Status: Resolved (8) History of positive PPD Current Visit: Yes Status: Resolved - Initial Treatment Plan Initial Treatment Plan: Psychoeducation.Detoxification.Medications : effexor XR 75 mg po daily.Side effects/benefits are discussed with the patient.He is in agreement with this careplan.Observation.
--- NOTE | 2016-12-05 13:48 | PN ---
S CIWA - CIWA Score Nausea/Vomitin Muscle Tremors: 2 Anxiety: 2 Agitation: 2 Paroxysmal Sweats: 3 Orientation: 0-Oriented Tacttile Disturbances: 2-Mild Itch/Numbness/Burn Auditory Disturbances: 0-None Visual Disturbances: 1-Very Mild Sensitivity Headache: 2-Mild CIWA-Ar Total Score: 16 S Progress Note (SOAP) Subjective: shakes, sweats, anxiety Objective: 12/05/16 13:48 Vital Signs - 8 hr 12/05/16 12/05/16 06:33 10:32 Temperature 96.4 F L 96.4 F L Pulse Rate 61 62 Respiratory 16 18 Rate Blood Pressure 132/92 130/89 Laboratory Last Values WBC 8.1 K/mm3 (4.0-10.0) D 12/05/16 07:50 RBC 4.95 M/mm3 (4.00-5.60) 12/05/16 07:50 Hgb 14.9 GM/dL (11.7-16.9) 12/05/16 07:50 Hct 44.3 % (35.4-49) 12/05/16 07:50 MCV 89.5 fl (80-96) 12/05/16 07:50 MCHC 33.8 g/dl (32.0-35.9) 12/05/16 07:50 RDW 14.0 % (11.9-15.9) 12/05/16 07:50 Plt Count 124 K/MM3 (134-434) L D 12/05/16 07:50 MPV 9.8 fl (7.5-11.1) 12/05/16 07:50 Sodium 140 mmol/L (136-145) 12/05/16 07:50 Potassium 3.9 mmol/L (3.5-5.1) 12/05/16 07:50 Chloride 102 mmol/L (98-107) 12/05/16 07:50 Carbon Dioxide 27 mmol/L (21-32) 12/05/16 07:50 Anion Gap 11 (8-16) 12/05/16 07:50 BUN 25 mg/dL (7-18) H D 12/05/16 07:50 Creatinine 1.0 mg/dL (0.7-1.3) 12/05/16 07:50 Creat Clearance w eGFR > 60 (>60) 12/05/16 07:50 Random Glucose 75 mg/dL (74-106) 12/05/16 07:50 Calcium 9.0 mg/dL (8.5-10.1) 12/05/16 07:50 Total Bilirubin 0.4 mg/dL (0.2-1.0) 12/05/16 07:50 AST 19 U/L (15-37) 12/05/16 07:50 ALT 22 U/L (12-78) 12/05/16 07:50 Alkaline Phosphatase 91 U/L (45-117) 12/05/16 07:50 Total Protein 7.0 g/dl (6.4-8.2) 12/05/16 07:50 Albumin 3.9 g/dl (3.4-5.0) 12/05/16 07:50 Urine Color Yellow 12/04/16 00:45 Urine Appearance Slcloudy 12/04/16 00:45 Urine pH 6.0 (5.0-8.0) 12/04/16 00:45 Urine Protein Negative (NEGATIVE) 12/04/16 00:45 Urine Glucose (UA) Negative (NEGATIVE) 12/04/16 00:45 Urine Ketones Negative (NEGATIVE) 12/04/16 00:45 Urine Blood Negative (NEGATIVE) 12/04/16 00:45 Urine Nitrite Negative (NEGATIVE) 12/04/16 00:45 Urine Bilirubin Negative (NEGATIVE) 12/04/16 00:45 Urine Urobilinogen Negative E.U./dl (0.2-1.0) 12/04/16 00:45 Ur Leukocyte Esterase Trace (NEGATIVE) H 12/04/16 00:45 Urine RBC 17 /hpf (0-3) 12/04/16 00:45 Urine WBC 8 /hpf (3-5) 12/04/16 00:45 Ur Epithelial Cells Rare /hpf (FEW) 12/04/16 00:45 Hyaline Casts 1 /lpf 12/04/16 00:45 Urine Mucus Many 12/04/16 00:45 labs noted Assessment: 12/05/16 13:48 withdrawal sx Plan: continue detox
[2016-12-05] MEDS: THIAMINE HCL 100 MG TABLET (FP) PO SCH (22:50)
[2016-12-05] MEDS: diphenhydrAMINE HCL 50 MG CAPSULE PO PRN (22:50)
[2016-12-06] MEDS: diazePAM 5 MG TABLET PO PRN ×2 (03:33→15:35)
[2016-12-06] MEDS ORDERED: METHADONE HCL 40 MG DISPERSABLE TABLET ONE (04:18)
[2016-12-06] MEDS ORDERED: METHADONE HCL 10 MG TABLET ONE (04:18)
[2016-12-06] MEDS: METHADONE 120 MG, METHADONE 30 MG PO SCH (05:49)
[2016-12-06] MEDS: PRENATAL VITAMINS W/ FOLIC ACID TABLET (FP) PO SCH (10:26)
[2016-12-06] MEDS: NICOTINE 14 MG/24 HOURS TOPICAL PATCH TD SCH (10:26)
[2016-12-06] MEDS: VENLAFAXINE HCL 75 MG E.R. CAPSULES (FP) PO SCH (10:26)
[2016-12-06] MEDS: diazePAM 5 MG TABLET PO SCH ×2 (10:26→22:36)
--- NOTE | 2016-12-06 16:20 | PN ---
S CIWA - CIWA Score Nausea/Vomitin Muscle Tremors: 4-Moderate,w/Arms Extend Anxiety: 4-Mod. Anxious/Guarded Agitation: 4-Moderately Restless Paroxysmal Sweats: 3 Orientation: 0-Oriented Tacttile Disturbances: 1-Very Mild Itch/Numbness Auditory Disturbances: 0-None Visual Disturbances: 0-None Headache: 2-Mild CIWA-Ar Total Score: 21 BHS Progress Note (SOAP) Subjective: Sweating, tremor, chills, anxious, interrupted sleep Objective: 12/06/16 16:17 Last Vital Signs Temp Pulse Resp BP Pulse Ox 97.2 F L 84 20 128/90 12/06/16 14:00 12/06/16 14:00 12/06/16 14:00 12/06/16 14:00 Laboratory Tests 12/04/16 12/05/16 12/05/16 00:45 07:50 07:50 WBC 8.1 D RBC 4.95 Hgb 14.9 Hct 44.3 MCV 89.5 MCHC 33.8 RDW 14.0 Plt Count 124 L D MPV 9.8 Sodium 140 Potassium 3.9 Chloride 102 Carbon Dioxide 27 Anion Gap 11 BUN 25 H D Creatinine 1.0 Creat Clearance w eGFR > 60 Random Glucose 75 Calcium 9.0 Total Bilirubin 0.4 AST 19 ALT 22 Alkaline Phosphatase 91 Total Protein 7.0 Albumin 3.9 Urine Color Yellow Urine Appearance Slcloudy Urine pH 6.0 Ur Specific [place] 1.025 Urine Protein Negative Urine Glucose (UA) Negative Urine Ketones Negative Urine Blood Negative Urine Nitrite Negative Urine Bilirubin Negative Urine Urobilinogen Negative Ur Leukocyte Esterase Trace H Urine RBC 17 Urine WBC 8 Ur Epithelial Cells Rare Hyaline Casts 1 Urine Mucus Many RPR Titer 12/05/16 07:50 WBC RBC Hgb Hct MCV MCHC RDW Plt Count MPV Sodium Potassium Chloride Carbon Dioxide Anion Gap BUN Creatinine Creat Clearance w eGFR Random Glucose Calcium Total Bilirubin AST ALT Alkaline Phosphatase Total Protein Albumin Urine Color Urine Appearance Urine pH Ur Specific [place] Urine Protein Urine Glucose (UA) Urine Ketones Urine Blood Urine Nitrite Urine Bilirubin Urine Urobilinogen Ur Leukocyte Esterase Urine RBC Urine WBC Ur Epithelial Cells Hyaline Casts Urine Mucus RPR Titer Nonreactive Labs noted: bun 25, UA abnl Assessment: 12/06/16 16:18 Withdrawal symptoms Noted with azotemia and abnormal UA Plan: Continue detox Azotemia: encouraged to drink lots of water Abnormal UA: drink lots of water, repeat UA
[2016-12-06] MEDS: THIAMINE HCL 100 MG TABLET (FP) PO SCH (22:36)
[2016-12-06] MEDS: diphenhydrAMINE HCL 50 MG CAPSULE PO PRN (22:37)
[2016-12-07] MEDS ORDERED: METHADONE HCL 40 MG DISPERSABLE TABLET ONE (03:59)
[2016-12-07] MEDS ORDERED: METHADONE HCL 10 MG TABLET ONE (03:59)
[2016-12-07] MEDS: diazePAM 5 MG TABLET PO PRN (05:12)
[2016-12-07] MEDS: METHADONE 120 MG, METHADONE 30 MG PO SCH (05:12)
[2016-12-07] MEDS: PRENATAL VITAMINS W/ FOLIC ACID TABLET (FP) PO SCH (10:26)
[2016-12-07] MEDS: diazePAM 5 MG TABLET PO SCH ×2 (10:26→22:25)
[2016-12-07] MEDS: NICOTINE 14 MG/24 HOURS TOPICAL PATCH TD SCH (10:26)
[2016-12-07] MEDS: VENLAFAXINE HCL 75 MG E.R. CAPSULES (FP) PO SCH (10:26)
--- NOTE | 2016-12-07 11:32 | EKG ---
Test Reason : Blood Pressure : / mmHG Vent. Rate : 077 BPM Atrial Rate : 077 BPM P-R Int : 132 ms QRS Dur : 090 ms QT Int : 404 ms P-R-T Axes : 058 048 042 degrees QTc Int : 457 ms NORMAL SINUS RHYTHM NORMAL ECG WHEN COMPARED WITH ECG OF 05-OCT-2016 21:45, NO SIGNIFICANT CHANGE WAS FOUND Confirmed by JESSICA PUGA MD ([id number]) on 12/07/2016 11:31:43 AM Referred By: Confirmed By:JESSICA PUGA MD
[2016-12-07 14:20] LABS: URINE APPEARANCE CLEAR; URINE BILIRUBIN NEGATIVE (NEGATIVE); URINE BLOOD NEGATIVE (NEGATIVE); URINE COLOR YELLOW; URINE GLUCOSE (UA) NEGATIVE (NEGATIVE); URINE KETONE NEGATIVE (NEGATIVE); URINE NITRITE NEGATIVE (NEGATIVE); URINE PROTEIN NEGATIVE (NEGATIVE); URINE UROBILINOGEN NEGATIVE E.U./dl (0.2-1.0)
[2016-12-07 14:21] LABS: URINE LEUK ESTERASE TRACE (NEGATIVE)
[2016-12-07 14:35] LABS: URINE RBC <1 /hpf (0-3); URINE WBC 1 /hpf (3-5)
--- NOTE | 2016-12-07 15:00 | PN ---
S Progress Note (SOAP) Subjective: Sweating, chills, tremor, anxious Objective: 12/07/16 14:58 Last Vital Signs Temp Pulse Resp BP Pulse Ox 97.3 F L 71 18 120/87 12/07/16 13:55 12/07/16 13:55 12/07/16 13:55 12/07/16 13:55 Laboratory Tests 12/04/16 12/05/16 12/05/16 00:45 07:50 07:50 WBC 8.1 D RBC 4.95 Hgb 14.9 Hct 44.3 MCV 89.5 MCHC 33.8 RDW 14.0 Plt Count 124 L D MPV 9.8 Sodium 140 Potassium 3.9 Chloride 102 Carbon Dioxide 27 Anion Gap 11 BUN 25 H D Creatinine 1.0 Creat Clearance w eGFR > 60 Random Glucose 75 Calcium 9.0 Total Bilirubin 0.4 AST 19 ALT 22 Alkaline Phosphatase 91 Total Protein 7.0 Albumin 3.9 Urine Color Yellow Urine Appearance Slcloudy Urine pH 6.0 Ur Specific [place] 1.025 Urine Protein Negative Urine Glucose (UA) Negative Urine Ketones Negative Urine Blood Negative Urine Nitrite Negative Urine Bilirubin Negative Urine Urobilinogen Negative Ur Leukocyte Esterase Trace H Urine RBC 17 Urine WBC 8 Ur Epithelial Cells Rare Amorphous Urates Hyaline Casts 1 Urine Mucus Many RPR Titer 12/05/16 12/07/16 07:50 08:00 WBC RBC Hgb Hct MCV MCHC RDW Plt Count MPV Sodium Potassium Chloride Carbon Dioxide Anion Gap BUN Creatinine Creat Clearance w eGFR Random Glucose Calcium Total Bilirubin AST ALT Alkaline Phosphatase Total Protein Albumin Urine Color Yellow Urine Appearance Clear Urine pH 6.0 Ur Specific [place] Urine Protein Negative Urine Glucose (UA) Negative Urine Ketones Negative Urine Blood Negative Urine Nitrite Negative Urine Bilirubin Negative Urine Urobilinogen Negative Ur Leukocyte Esterase Trace H Urine RBC <1 Urine WBC 1 Ur Epithelial Cells Rare Amorphous Urates Few Hyaline Casts Urine Mucus RPR Titer Nonreactive Labs noted Assessment: 12/07/16 14:58 Withdrawal symptoms Noted with azotemia and abnormal UA Plan: Continue detox Azotemia: Encouraged to drink lots of water Abnormal UA: drink lots of water, UA repeated
[2016-12-07] MEDS: diphenhydrAMINE HCL 50 MG CAPSULE PO PRN (22:25)
[2016-12-07] MEDS: THIAMINE HCL 100 MG TABLET (FP) PO SCH (22:25)
[2016-12-08] MEDS ORDERED: METHADONE HCL 10 MG TABLET ONE (01:35)
[2016-12-08] MEDS ORDERED: METHADONE HCL 40 MG DISPERSABLE TABLET ONE (01:36)
[2016-12-08] MEDS: METHADONE 120 MG, METHADONE 30 MG PO SCH (05:20)
[2016-12-08 09:21] VITALS: PULSE 81; TEMP 96.2
[2016-12-08 09:22] VITALS: BP 141/103
[2016-12-08] MEDS ORDERED: diazePAM 5 MG TABLET PO SCH (10:00)
[2016-12-08] MEDS: PRENATAL VITAMINS W/ FOLIC ACID TABLET (FP) PO SCH (10:29)
[2016-12-08] MEDS: NICOTINE 14 MG/24 HOURS TOPICAL PATCH TD SCH (10:29)
[2016-12-08] MEDS: VENLAFAXINE HCL 75 MG E.R. CAPSULES (FP) PO SCH (10:29)
--- NOTE | 2016-12-08 11:36 | PN ---
BHS Progress Note (SOAP) Subjective: ' I FEEL I'VE BEEN HIT BY A TRUCK". ACHES,TREMORS,ANXIETY. Objective: 12/08/16 11:35 Vital Signs Temperature 96.2 F L 12/08/16 09:21 Pulse Rate 81 12/08/16 09:21 Respiratory Rate 18 12/08/16 09:21 Blood Pressure 141/103 12/08/16 09:22 O2 Sat by Pulse Oximetry (%) Assessment: 12/08/16 11:35 WITHDRAWAL SX Plan: CONTINUE DETOX
--- NOTE | 2016-12-08 12:02 | DS ---
[facility] Detox Discharge Summary Admission Date: 12/04/16 Discharge Date: 12/08/16 - History Present History: Sedative Dependence, MMTP Additional Comments: PT COMPLETED DETOX. REFERRED TO [facility] PER COUNSELOR ETHEL NICHOLS. Pertinent Past History: HEP C DEPRESSION - Physical Exam Results Vital Signs: Vital Signs Temperature 96.2 F L 12/08/16 09:21 Pulse Rate 81 12/08/16 09:21 Respiratory Rate 18 12/08/16 09:21 Blood Pressure 141/103 12/08/16 09:22 O2 Sat by Pulse Oximetry (%) Pertinent Admission Physical Exam Findings: WITHDRAWAL SX Laboratory Last Values WBC 8.1 K/mm3 (4.0-10.0) D 12/05/16 07:50 RBC 4.95 M/mm3 (4.00-5.60) 12/05/16 07:50 Hgb 14.9 GM/dL (11.7-16.9) 12/05/16 07:50 Hct 44.3 % (35.4-49) 12/05/16 07:50 MCV 89.5 fl (80-96) 12/05/16 07:50 MCHC 33.8 g/dl (32.0-35.9) 12/05/16 07:50 RDW 14.0 % (11.9-15.9) 12/05/16 07:50 Plt Count 124 K/MM3 (134-434) L D 12/05/16 07:50 MPV 9.8 fl (7.5-11.1) 12/05/16 07:50 Sodium 140 mmol/L (136-145) 12/05/16 07:50 Potassium 3.9 mmol/L (3.5-5.1) 12/05/16 07:50 Chloride 102 mmol/L (98-107) 12/05/16 07:50 Carbon Dioxide 27 mmol/L (21-32) 12/05/16 07:50 Anion Gap 11 (8-16) 12/05/16 07:50 BUN 25 mg/dL (7-18) H D 12/05/16 07:50 Creatinine 1.0 mg/dL (0.7-1.3) 12/05/16 07:50 Creat Clearance w eGFR > 60 (>60) 12/05/16 07:50 Random Glucose 75 mg/dL (74-106) 12/05/16 07:50 Calcium 9.0 mg/dL (8.5-10.1) 12/05/16 07:50 Total Bilirubin 0.4 mg/dL (0.2-1.0) 12/05/16 07:50 AST 19 U/L (15-37) 12/05/16 07:50 ALT 22 U/L (12-78) 12/05/16 07:50 Alkaline Phosphatase 91 U/L (45-117) 12/05/16 07:50 Total Protein 7.0 g/dl (6.4-8.2) 12/05/16 07:50 Albumin 3.9 g/dl (3.4-5.0) 12/05/16 07:50 Urine Color Yellow 12/07/16 08:00 Urine Appearance Clear 12/07/16 08:00 Urine pH 6.0 (5.0-8.0) 12/07/16 08:00 Ur Specific [place] 1.020 (1.005-1.025) 12/07/16 08:00 Urine Protein Negative (NEGATIVE) 12/07/16 08:00 Urine Glucose (UA) Negative (NEGATIVE) 12/07/16 08:00 Urine Ketones Negative (NEGATIVE) 12/07/16 08:00 Urine Blood Negative (NEGATIVE) 12/07/16 08:00 Urine Nitrite Negative (NEGATIVE) 12/07/16 08:00 Urine Bilirubin Negative (NEGATIVE) 12/07/16 08:00 Urine Urobilinogen Negative E.U./dl (0.2-1.0) 12/07/16 08:00 Ur Leukocyte Esterase Trace (NEGATIVE) H 12/07/16 08:00 Urine RBC <1 /hpf (0-3) 12/07/16 08:00 Urine WBC 1 /hpf (3-5) 12/07/16 08:00 Ur Epithelial Cells Rare /hpf (FEW) 12/07/16 08:00 Amorphous Urates Few /hpf (NONE SEEN) 12/07/16 08:00 Hyaline Casts 1 /lpf 12/04/16 00:45 Urine Mucus Many 12/04/16 00:45 RPR Titer Nonreactive (NONREACTIVE) 12/05/16 07:50 - Treatment Hospital Course: Detox Protocol Followed, Detoxed Safely, Responded well, Discharged Condition Good, Rehab Referral Accepted Patient has Accepted a Rehab Referral to: [place], [place] - Medication Discharge Medications: Ambulatory Orders Buspirone HCl [Buspar -] 10 mg PO BID 10/05/16 Gabapentin [Neurontin -] 400 mg PO TID 10/05/16 Venlafaxine HCl ER [Effexor Xr -] 75 mg PO BID 10/05/16 Venlafaxine HCl ER [Effexor Xr -] 75 mg PO DAILY #30 cap.er.24h 12/05/16 - Diagnosis (1) Nicotine dependence Status: Acute Qualifiers: Nicotine product type: cigarettes Substance use status: in withdrawal Qualified Code(s): F17.213 - Nicotine dependence, cigarettes, with withdrawal (2) Sedative, hypnotic or anxiolytic dependence with withdrawal, uncomplicated Status: Acute (3) Methadone maintenance therapy patient Status: Chronic - AMA Did Patient Leave Against Medical Advice: No
== END 2016-12-08 12:44 | disposition home or self-care (01) | DRG 773 ==
LOC: YASAS 15:46 → Y3N 20:07
PROVIDERS: ADMIT Internal Medicine; ATTEND Internal Medicine
PROC: HZ2ZZZZ Detoxification Services for Substance Abuse Treatment (ICD-10-PCS; principal; 2016-12-04)
DX: F13.230 Sedative, hypnotic or anxiolytic dependence with withdrawal, uncomplicated (principal); F11.20 Opioid dependence, uncomplicated; F17.213 Nicotine dependence, cigarettes, with withdrawal; F19.24 Other psychoactive substance dependence with psychoactive substance-induced mood disorder; F31.81 Bipolar II disorder; R79.89 Other specified abnormal findings of blood chemistry; R82.90 Unspecified abnormal findings in urine; B18.2 Chronic viral hepatitis C; R76.11 Nonspecific reaction to tuberculin skin test without active tuberculosis; Z87.442 Personal history of urinary calculi
CPT/HCPCS: 36415; 80053; 81003; 81015; 85027; 86593; 93005; 93010